=== PATIENT | female | born 1955 | race Caucasian/White ===

== ENCOUNTER → 2016-10-16 | Day surgery (SDC) | payer OTHER ==
[~2016-10-16] MED LIST: BUPIVACAINE HCL PF 0.25% 30 ML VIAL ONE; CLINDAMYCIN PHOS 600 MG/4 ML VIAL ONE; KETOROLAC TROMETHAMINE 30 MG/ML (IVP) VIAL IV PUSH ONE; LACTATED RINGER'S 1000 ML INJ 1,000 ML ONE; ONDANSETRON HCL 4 MG/2 ML VIAL IV PUSH ONE; PROPOFOL 500 MG/50 ML BTL IV ONE; SODIUM CHLORIDE 0.9% INJ 100 ML IV ONE; ceFAZolin 2 GM PREMIX 50 ML ONE
--- NOTE | 2016-10-18 09:02 | MP ---
cc: [facility] DATE OF SURGERY 10/16/2016 PREOPERATIVE DIAGNOSIS Right third digit hammertoe, osteoarthritis subungual soft tissue mass. POSTOPERATIVE DIAGNOSIS Right third digit hammertoe, osteoarthritis subungual soft tissue mass. PROCEDURES PERFORMED 1. Right third digit DIPJ fusion 2. Excision deep soft tissue mass right third digit. SPECIMEN Deep soft tissue mass, soft tissue for permanent ESTIMATED BLOOD LOSS Less than 30 mL COMPLICATIONS None ANESTHESIA Total IV anesthesia with local 5 cc of 0.25% Marcaine plain. DRAINS None TOURNIQUET TIME 10 minutes with a Travis wrapped around the base of the right third digit. PLAN OF ACTIVITY PACU then DC home once stable per same-day surgery criteria. JUSTIFICATION FOR THE PROCEDURE This is a pleasant 61-year-old female with a recurrent mass that appears to be coming from the DIPJ and the subungual portion of the right third digit. Furthermore, the patient has had changes of the right third digit at the level of the DIPJ, possible early arthritis. We reviewed treatment options. Her main concern is the mass continues to recur. We devised a plan to move forward with excision of the mass that likely communicates with the joint capsule of the third digit DIPJ if we fuse this time, it lessens the chance of recurrence of the mucinous cyst. No guarantees were given or implied regarding the outcome. The patient understands stiffness, possible return of mass, infection and delayed recovery due to this being a repeat procedure. PROCEDURE IN DETAIL Under mild sedation, the patient was brought in the operating room, placed on the operating table in the supine position. Following the induction of total IV anesthesia, local anesthesia was obtained about the patient's forefoot utilizing standard block fashion. The right foot was then scrubbed, prepped and draped in the usual aseptic fashion. The foot was elevated and a Travis drain was wrapped around the base of the right third digit. The digit was examined under 3.5 loupe visualization through the entirety of the surgery. A linear incision was made at the dorsal aspect of the DIPJ. This was down to the extensor tendon which was then severed revealing arthritic findings at the level of the DIPJ. The head of the middle phalanx was transected and the base of the distal phalanx was transected utilizing power instrumentation. Dissection was then carried superficial to the extensor tendon distally, but deep to the deep epidermal layer and there was noted to be communication of a mucinous cyst type substance. This was then excised at the level of the nail bed and matrix down to periosteum. At this time, we opted to shorten the toe allowing for the dorsal flap of the linear incision to now cover the base of the third digit allowing me to remove the skin and the subdermal contents presumed mucinous cyst. Once this was performed, a K-wire was then placed to distal phalanx crossing the DIPJ fusion site stopping just short of the PIPJ. There was noted to be a stable fusion fixation construct. At this time, the tendon was coapted utilizing Vicryl. Skin was then advanced forward over the base of the third digit nail covering where the third digit mass was prior. This served as a mini plastic surgery technique to advanced tissue over where chronically inflamed tissue was prior. This was then repaired utilizing nylon. Steri-Strips were then placed across the incision to augment healing. The [place] was dropped. There was noted to be a prompt hyperemic response to the digit with minimal bleeding. A bulky bandage was placed. The patient transferred from OR to PACU with all vital signs stable. She is heel weight bear. She will not ice, she will only elevate. LUCERO Arrington/KENNEY /3:47 PM /8:52 AM
== END | disposition home or self-care (01) ==
LOC: ESDC 13:34
PROVIDERS: ATTEND Podiatrist Foot & Ankle Surgery
DX: M20.41 Other hammer toe(s) (acquired), right foot (principal); R22.41 Localized swelling, mass and lump, right lower limb; M67.471 Ganglion, right ankle and foot
CPT/HCPCS: 01470; 01480; 28045; 28285; 88305; J1885; J2405; J3010; J7120; 88304; J0690